=== PATIENT | male | born 1990 | race African-American/Black ===

== ENCOUNTER → 2019-09-13 09:05 | Outpatient (CLI) | payer MEDICAID, SELFPAY ==
--- NOTE | 2019-09-13 09:09 | XR_ITS ---
PROCEDURE: XR KNEE LT 4V CLINICAL INDICATION: LT knee pain COMPARISON: No exams were available for comparison FINDINGS: No fracture or dislocation. No lytic or blastic change. There is normal mineralization. The joint spaces are well-preserved. No significant degenerative/arthritic changes. No erosive changes evident. Other findings:None. IMPRESSION: No acute findings. Dictated by: Anoop Chung MD 09/13/2019 18:56 Electronically signed by Anoop Chung MD in [place] 09/13/2019 18:56
== END ==
PROVIDERS: Visit Provider Orthopaedic Surgery
DX: M25.562 Pain in left knee (principal)
CPT/HCPCS: 73564

== ENCOUNTER → 2020-01-17 12:52 | Outpatient (CLI) | payer MEDICAID, SELFPAY ==
--- NOTE | 2020-01-17 12:52 | MR_ITS ---
PROCEDURE: MR KNEE LT WO CON CLINICAL INDICATION: evaluate for ACL vs meniscus tear COMPARISON: No exams were available for comparison TECHNIQUE: Routine multiplanar multisequence exam was performed. FINDINGS: There is some patient motion artifact degradation of images. There is an oblique tear of the posterior horn of the medial meniscus. The anterior cruciate ligament is poorly visualized. Completely intact fibers of the anterior cruciate ligament are not confirmed on this exam. The posterior cruciate ligament, quadriceps and patellar tendons, medial and lateral collateral ligament complexes appear intact. There is no significant joint effusion. Small fluid-filled bursa adjacent to the posterior medial femoral condyle is noted. IMPRESSION: Tear of posterior horn of medial meniscus. Limited exam as described with poor evaluation of anterior cruciate ligament. Dictated by: Gerardo Aguayo 01/17/2020 16:05 Electronically signed by Gerardo Aguayo in [place] 01/17/2020 16:05
== END ==
PROVIDERS: PCP Orthopaedic Surgery; Visit Provider Orthopaedic Surgery
DX: S89.92XA Unspecified injury of left lower leg, initial encounter (principal)
CPT/HCPCS: 73721

== ENCOUNTER → 2020-02-21 14:34 | Outpatient (CLI) | payer MEDICAID, SELFPAY ==
--- NOTE | 2020-02-21 14:39 | XR_ITS ---
PROCEDURE: XR KNEE LT 4V CLINICAL INDICATION: left knee pain; recent injury COMPARISON: XR KNEE LT 4V from 09/13/2019 FINDINGS: No fracture or dislocation. No lytic or blastic change. There is normal mineralization. The joint spaces are well-preserved. No significant degenerative/arthritic changes. No erosive changes evident. Other findings:None. IMPRESSION: No acute findings. Dictated by: Anoop Chung MD 02/21/2020 15:21 Electronically signed by Anoop Chung MD in [place] 02/21/2020 15:21
== END ==
PROVIDERS: Visit Provider Orthopaedic Surgery
DX: M25.562 Pain in left knee (principal)
CPT/HCPCS: 73564

== ENCOUNTER 2020-02-21 15:17 | Outpatient (RCR) | payer MEDICAID, SELFPAY | END 2020-02-21 16:00 | disposition home or self-care (01) | LOC: PT 15:17 | PROVIDERS: Visit Provider Orthopaedic Surgery | DX: M25.562 Pain in left knee (principal) | CPT/HCPCS: 97760 ==